=== PATIENT | male | born 1985 | race Caucasian/White ===

== ENCOUNTER 2024-01-04 06:48 | Emergency (ER) | payer BC, SELFPAY ==
[2024-01-04 06:59] VITALS: BP 135/80; PULSE 70; RESP 14; TEMP 37.1; O2SAT 100
--- NOTE | 2024-01-04 07:44 | ED.GENADULT ---
HPI - General Adult General Chief complaint: Arrhythmia/Palpitations Stated complaint: irregular heartbeat, sweating, pain in back Time Seen by Provider: 01/04/24 07:24 Source: patient Mode of arrival: ambulatory Limitations: no limitations History of Present Illness HPI narrative: 38-year-old male presents the emergency department with feeling of palpitations. Worsened this morning after E ate a doughnut. He describes the feeling as a pause and then a couple of strong beats and then his heart returns to normal. This time he felt slightly lightheaded for a couple of seconds. He initially tells me that this has been going on for a year but then further conversation, he tells me it has been going on for many years at least 8. He has had a Holter monitor he has had a heart scan. 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 It sounds as though he has had appropriate hemoglobin, electrolyte, thyroid testing. He is currently asymptomatic. 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 Has never been on a beta-agnela to help prevent these. No chest pain, no neurological changes, no fever or recent illness. No recreational drugs or heavy alcohol. No long-term medical problems, no long-term prescription medications. ROS is notable for the cardiac symptoms as above only, otherwise denies times 12 systems. Nonsmoker. Typical care is through [facility] Related Data Home Medications ?Medication ?Instructions ?Recorded ?Confirmed No Known Home Medications 01/04/24 01/04/24 Allergies Allergy/AdvReac Type Severity Reaction Status Date / Time No Known Drug Allergies Allergy Verified 01/04/24 06:59 Exam Const: Vital Signs, click to edit/add: Vital Signs - 24 hr 01/04/24 06:59 Temperature 98.7 F Pulse Rate [Pulse Oximeter] 70 Respiratory Rate 14 Blood Pressure [Ri ght Upper Arm] 135/80 Pulse Oximetry 100 Oxygen Delivery Me thod Room Air Documenting provider has reviewed patient's vital signs: yes Common normals: no apparent distress General appearance: cooperative and well kempt HENMT: Common normals: normocephalic and oropharynx normal Head and scalp: normocephalic Face and sinus: normal facial exam Mouth: oral and palatal mucosa normal Throat: posterior oropharynx normal Eye: Common normals: conjunctivae normal General eye: normal appearance of both eyes Conjunctiva: conjunctiva(e) normal Neck & C-Spine: Common normals: no lymphadenopathy Resp: Common normals: normal respiratory effort and no use of accessory muscles Effort & inspection: able to speak in complete sentences Cardio: Common normals: regular rate, regular rhythm, S1 normal heart sound, S2 normal heart sound and no murmurs Rate: regular rate Rhythm: regular rhythm Heart sounds: S1 normal and S2 normal Extremity: Common normals: normal to inspection and no pedal edema Psych: Appearance: well kempt Attitude: engaged Insight: insight good Judgement: judgment good Skin: Common normals: no rashes or lesions noted General skin exam: no rashes or lesions noted Course Course ED Course: 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 He is in nice normal sinus rhythm with a slightly prolonged MI interval. Normal axis otherwise. No prior EKG. No significant ST or T-wave abnormalities. Counseled patient on EKG findings and extensively reviewed the prior tests that have been done. Discussed PVCs. After a thorough discussion, elects not to stay for additional blood work and workup. He felt reassured by our conversation. I did discuss that he may be a good candidate for a beta-angela if his symptoms are this bothersome. He should discuss it with his primary care provider. Side effect profile discussed. If he does find that his symptoms are often triggered by eating, there may be an element of esophageal stretch worsening vagus nerve stimulation. I would recommend that he try to eat slower, at least to full minute between bites and try to avoid taking liquids directly with the meal waiting 10 minutes before and after the meal for additional liquids. There are no other red flag signs that he would absolutely need to stay for further workup and I support his decision to elect to discharge without further workup. He did decline these when offered. Vital Signs Vital signs: Initial Vital Signs Temperature 98.7 F 01/04/24 06:59 Temperature Source Temporal Artery Scan 01/04/24 06:59 Pulse Rate 70 01/04/24 06:59 Pulse Rhythm Regular 01/04/24 06:59 Pulse Strength 3+ Normal 01/04/24 06:59 Respiratory Rate 14 01/04/24 06:59 Blood Pressure 135/80 01/04/24 06:59 Blood Pressure Mean 98 06/26/24 06:59 Blood Pressure Position Sitting 01/04/24 06:59 Pulse Oximetry 100 01/04/24 06:59 Oxygen Delivery Method Room Air 01/04/24 06:59 Vital Signs Temperature 98.7 F 01/04/24 06:59 Pulse Rate 70 01/04/24 06:59 Respiratory Rate 14 01/04/24 06:59 Blood Pressure 135/80 01/04/24 06:59 Pulse Oximetry 100 01/04/24 06:59 Oxygen Delivery Method Room Air 01/04/24 06:59 Temperature 98.7 F 01/04/24 06:59 Pulse Rate 70 01/04/24 06:59 Respiratory Rate 14 01/04/24 06:59 Blood Pressure 135/80 01/04/24 06:59 Pulse Oximetry 100 01/04/24 06:59 Oxygen Delivery Method Room Air 01/04/24 06:59 Discharge Plan Discharge Clinical Impression: Palpitations, Premature ventricular contraction Patient Disposition: Home w/ Parent or Adult Condition: Improved Instructions: Premature Ventricular Contractions (ED) Additional Instructions: As we discussed, there are no signs of abnormal heart rhythm today. It sounds as though you have had excellent workup for these in the past. It sounds as though you have had a Holter monitor and a heart scan to look at your coronary arteries and I am thankful that those were all reassuring. It also sounds as though you have had appropriate blood work to check your kidney function, hemoglobin, thyroid which are the tests that I would have recommended today. Your EKG shows nice, normal sinus rhythm and no signs of abnormalities today. You elected not to stay for blood work because it would be a couple of hours to get those results based on how busy we are. That is certainly reasonable since you have had these tests performed in the past. As we discussed, some people find that decreasing caffeine helps with their PVCs. I do tend to find that eating slower and reducing the amount of stretch on the esophagus can be helpful also. Try to limit liquids 10 minutes before and after your meals, to slowly and take at least 60 seconds between bites. There are medications such as propranolol that can reduce PVCs. They can cause shortness of breath fatigue and other side effects in some people. But some people find tremendous benefit from the medication. I would recommend that you speak with her primary provider about if this is right for you. Remember that those PVCs are not dangerous though they can be quite frustrating. I would also want you to consider a wear a bowl smart watch like an Apple watch that has a heart monitor built in so that you can track to see if there is a dangerous rhythm. Often, this can give people good reassurance that they are safe. You may return to work with no restrictions. Activity Level: No Restrictions Discharge Diet: Regular Prescriptions: No Action No Known Home Medications Follow Up/Referrals: Alexander Perez MD [Primary Care Provider] - Stand Alone Forms: [employer] Info Instructions
--- OUTSIDE RECORDS SUMMARY | 2024-01-04 08:00 | XMS_ITS | Clinical Summary ---
Author Organization [facility] Address [place], [place] [address] Care Team Providers Care Floor Plan Adjuster Name Role Phone Mina Garduno MD Unavailable Un available Pcp, No Primary Care Provider Unavailabl e Allergies No known active allergies Medications No known medications Active Problems Problem Noted Date Diagnosed Date Palpitations 05/23/2015 GERD (gastroesophageal reflux disease) 4 Resolved Problems Problem Noted Date Diagnosed Date Resolved Date No active medical problems 08/11/2011 0 04/07/2014 Immunizations Name Administration Dates Next Due Td (Age >=7 Years) 07/11/2005 Tdap 02/20/2013 Family History Medical History Relation Name Comments Heart Disease Father [place] Heart attack Father Heart attack Maternal Grandfather in his 50s from [place]. Hypertension Maternal Grandfather Coronary artery disease Paternal Grandfather History of triple bypass. Cancer Paternal Grandmother Atrial fibrillation No Family History Hyperlipidemia No Family History Stroke No Family History Thyroid Disease No Family History Relation Name Status Comments Father (Age 59) Maternal Grandfather Mother Alive Paternal Grandfather heart a ttack Paternal Grandmother Social History Tobacco Use Types Packs/Day Years Used Date Smoking Tobacco: Former Cigarettes 0.5 17.7 0 07/11/2001 - 03/11/2019 Smokeless Tobacco: Never Tobacco Cessation:Counseling Given: Yes Alcohol Use Standard Drinks/Week Comments Yes 0 (1 standard drink = 0.6 oz pur e alcohol) occasoinal PHQ-2 Answer Date Recorded PHQ-2 TOTAL SCORE 0 11/26/2021 Social Connections Answer Date Recorded Frequency of Communication with Friends and Fami ly Not on file 11/26/2021 Financial Resource Strain Answer Date R ecorded Difficulty of Paying Living Expenses Not on file 07/11/2021 Difficulty of Paying Living Expenses Not on file 07/11/2021 Sex and Gender Information Value Date Recorded Sex Assigned at Not on file Gender Identity Not on file Sexual Orientation Not on file Obstetrics History Last Filed Vital Signs Vital Sign Reading Time Taken Comments Blood Pressure 122/86 11/26/2021 8:06 AM CDT Pulse 70 11/26/2021 8:06 AM CDT Temperature 36.7 ??C (98 ??F) 11/26/2021 8:06 AM CDT Respiratory Rate 16 09/13/2019 10:00 AM SENIOR UI UX 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 Oxygen Saturation 97% 11/26/2021 8:06 AM CDT Inhaled Oxygen Concentration - - Weight 98.4 kg (217 lb) 11/26/2021 8:06 AM CDT Height 180 cm (5' 10.87) 11/26/2021 8:06 AM CDT Body Mass Index 30.38 11/26/2021 8:06 AM CDT Plan of Treatment Health Maintenance Due Date Last Done Comments HIV for age 15-65 1999 Hepatitis C screening for ag e 18-79 2002 Lipids for age 35-44 05/21/2020 05/21/2015 BMI (ht and wt on same day) for age 18+ 11/26/2022 11/26/2021, 09/13/2019 Depression screening for age 12+ 11/26/2022 11/26/2021, 09/14/2019, 09/13/2019 Tetanus booster 02/20/2023 02/20/2013, 07/11/2005 COVID-19 vaccine series ( season) 2023 08/05/2021, 07/01/2021 Influenza for age 9-49 03/11/2024 Tdap Completed 02/20/2013 Pneumococcal series for age 6-64 Aged Out No longer eligible b ased on patient's age to complete this topic Procedures Procedure Name Priority Date/Time Associated Diagnosis Comments LIPID PANEL W REFLEX MEASURED LDL Routine 05/21/2015 9:05 AM SENIOR UI UX DEVELOPER Palpitations from Last 3 Months or Most Recently Relevant to Health Maintenance Results * (ABNORMAL) LIPID PANEL W REFLEX MEASURED LDL (05/21/2015 9:05 AM SENIOR UI UX DEVELOPER) CHOLESTEROL,TOTAL 147 100 - 199 mg/dL 05/21/2015 9:59 AM SENIOR UI UX DEVELOPER [facility] TRIGLYCERIDES 97 <150 mg/dL 05/21/2015 9:59 AM SENIOR UI UX DEVELOPER [facility] HDL CHOLESTEROL 36(L) >40 mg/dL 05/21/2015 9:59 AM SENIOR UI UX DEVELOPER [facility] NON-HDL CHOLESTEROL 111 <145 mg/dl 05/21/2015 9:59 AM SENIOR UI UX DEVELOPER [facility] CHOL/HDL RATIO 4.08 <4.50 05/21/2015 9:59 AM SENIOR UI UX DEVELOPER [facility] LDL CHOLESTEROL 92 <=130 mg/dL 05/21/2015 9:59 AM SENIOR UI UX DEVELOPER [facility] PATIENT STATUS NOT GIVEN 05/21/2015 9:59 AM SENIOR UI UX DEVELOPER [facility] Blood specimen (specimen) BLOOD SPECIMEN / Unknown Venipuncture / Unknown 05/21/2015 9:05 AM SENIOR UI UX DEVELOPER 05/21/2015 9:05 AM SENIOR UI UX DEVELOPER Alexander Perez MD CHEMISTR[facility] [address] [place] [address], from Last 3 Months or Most Recently Relevant to Health Maintenance Care Teams Floor Plan Adjuster Relationship Specialty Start Date End Date Pcp, No . PCP - General 05/20/23 Mina Garduno MD [facility] 10/16/11
== END 2024-01-04 08:13 | disposition home or self-care (01) ==
LOC: ED 07:57
PROVIDERS: Emergency Provider Family Medicine; PCP Family Medicine
DX: R00.2 Palpitations (principal); I49.3 Ventricular premature depolarization
CPT/HCPCS: 99283